=== PATIENT | female | born 1940 | race Caucasian/White ===

== ENCOUNTER 2023-06-30 09:48 | Emergency (ER) | payer MEDICARE, OTHER ==
[2023-06-30] MEDS ORDERED: Sodium Chloride 0.9% 1,000 ML IV SCH (10:15)
[2023-06-30 10:23] LABS: BASOPHILS PERCENT AUTO 0.2 % (0.0-1.0); EOSINOPHILS PERCENT AUTO 0.1 % (0.0-6.0); HEMATOCRIT 39.3 % (37.0-47.0); HEMOGLOBIN 12.9 gm/dl (12.0-16.0); IMMATURE GRAN ABSOLUTE AUTO 0.05 K/mm3 (0.00-0.05); IMMATURE GRAN PERCENT AUTO 0.5 % (0.0-0.4); LYMPHOCYTES ABSOLUTE AUTO 2.3 K/mm3 (1.0-4.8); LYMPHOCYTES PERCENT AUTO 21.7 % (24.0-44.0); MEAN CORPUSCULAR HEMOGLOBIN 30.5 pg (28.0-32.0); MEAN CORPUSCULAR HGB CONC 32.8 g/dl (32.0-36.0); MEAN CORPUSCULAR VOLUME 92.9 fl (83.0-99.0); MONOCYTES ABSOLUTE AUTO 0.8 K/mm3 (0.0-0.8); MONOCYTES PERCENT AUTO 7.2 % (0.0-8.0); NEUTROPHILS ABSOLUTE AUTO 7.4 K/mm3 (1.8-7.7); NEUTROPHILS PERCENT AUTO 70.3 % (41.0-71.0); PLATELET COUNT,PLT 168 K/mm3 (150-400); RED BLOOD CELL COUNT 4.23 M/mm3 (4.10-5.30); WHITE BLOOD CELL COUNT,WBC 10.51 K/mm3 (3.9-11.3)
[2023-06-30 10:39] LABS: INR 1.01; PROTHROMBIN TIME 10.8 SECONDS (9.7-12.0)
[2023-06-30 10:40] LABS: PTT,PARTIAL THROMBOPLSTIN TIME 28.3 SECONDS (21.7-31.4)
[2023-06-30 10:45] LABS: ALBUMIN 3.5 g/dl (3.4-5.0); BILIRUBIN TOTAL 1.5 mg/dL (0.2-1.0); BUN/CREATININE RATIO 7.5 (14-18); CALCIUM 9.1 mg/dL (8.5-10.1); CREATININE 1.2 mg/dL (0.55-1.02); EST CRCL DRUG DOSING (CG) 32.67 mL/min; PROTEIN TOTAL,TP 7.1 g/dl (6.4-8.2)
[2023-06-30] MEDS: Sodium Chloride 0.9% 10 ML Syringe FLUSH PRN ×2 (11:15→12:22)
[2023-06-30 11:28] LABS: APPEARANCE,URINE CLEAR (Clear); BILIRUBIN,URINE NEGATIVE (Negative); COLOR,URINE YELLOW (Yellow); GLUCOSE,URINE NEGATIVE (Negative); KETONES,URINE NEGATIVE (Negative); LEUKOCYTE ESTERASE,URINE NEGATIVE (Negative); NITRITE,URINE NEGATIVE (Negative); OCCULT BLOOD,URINE NEGATIVE (Negative); PROTEIN,URINE 1+ (Negative); UROBILINOGEN,URINE 0.2 (0.2-1.0)
[2023-06-30 11:36] LABS: BACTERIA,URINE NOT SEEN /hpf (FEW); EPITHELIAL CELLS,URINE NOT SEEN /hpf (0-5); HYALINE CASTS,URINE 0-5 /lpf (0-5); MUCUS,URINE FEW /hpf (FEW); RBC,URINE 0-5 /hpf (0-5); WBC,URINE 0-5 /hpf (0-5)
[2023-06-30] MEDS ORDERED: Aspirin 325 MG Tab.EC PO ONE (12:09)
[2023-06-30] MEDS ORDERED: Iopamidol 755 Mg/ML 100 ML Bottle IVPUSH ONE (12:21)
[2023-06-30] MEDS ORDERED: Sodium Chloride 0.9% 100 ML IV SCH (12:30)
[2023-06-30 14:12] VITALS: BP 160/68; PULSE 74
== END 2023-06-30 13:40 | disposition home or self-care (01) ==
LOC: JD.ED 09:48
DX: G45.9 Transient cerebral ischemic attack, unspecified (principal); I10 Essential (primary) hypertension; J44.9 Chronic obstructive pulmonary disease, unspecified; Z79.899 Other long term (current) drug therapy; Z88.8 Allergy status to other drugs, medicaments and biological substances
CPT/HCPCS: 36415; 70450; 70496; 70498; 71045; 80053; 81001; 82947; 84484; 85025; 85610; 85730; 93005; 93246; 99285; A9270; J3490; J7030; Q9967; 93010

== ENCOUNTER 2023-11-17 12:19 | Emergency (ER) | payer MEDICARE, OTHER ==
[2023-11-17 12:47] LABS: BASOPHILS PERCENT AUTO 0.2 % (0.0-1.0); EOSINOPHILS PERCENT AUTO 0.2 % (0.0-6.0); HEMATOCRIT 36.2 % (37.0-47.0); IMMATURE GRAN ABSOLUTE AUTO 0.06 K/mm3 (0.00-0.05); IMMATURE GRAN PERCENT AUTO 0.6 % (0.0-0.4); LYMPHOCYTES ABSOLUTE AUTO 3.1 K/mm3 (1.0-4.8); LYMPHOCYTES PERCENT AUTO 32.8 % (24.0-44.0); MEAN CORPUSCULAR HEMOGLOBIN 28.8 pg (28.0-32.0); MEAN CORPUSCULAR HGB CONC 31.5 g/dl (32.0-36.0); MEAN CORPUSCULAR VOLUME 91.4 fl (83.0-99.0); MONOCYTES ABSOLUTE AUTO 0.7 K/mm3 (0.0-0.8); MONOCYTES PERCENT AUTO 6.9 % (0.0-8.0); NEUTROPHILS ABSOLUTE AUTO 5.6 K/mm3 (1.8-7.7); NEUTROPHILS PERCENT AUTO 59.3 % (41.0-71.0); PLATELET COUNT,PLT 198 K/mm3 (150-400); RED BLOOD CELL COUNT 3.96 M/mm3 (4.10-5.30); WHITE BLOOD CELL COUNT,WBC 9.45 K/mm3 (3.9-11.3)
[2023-11-17 12:49] LABS: HEMOGLOBIN 11.4 gm/dl (12.0-16.0)
[2023-11-17 13:07] LABS: A/G RATIO 0.7 (1-2); ALBUMIN 2.4 g/dl (3.4-5.0); ANION GAP 11.6 (5-15); BILIRUBIN TOTAL 0.6 mg/dL (0.2-1.0); CALCIUM 8.4 mg/dL (8.5-10.1); EST CRCL DRUG DOSING (CG) 38.5 mL/min; POTASSIUM,K 3.6 mEq/L (3.5-5.1); PROTEIN TOTAL,TP 6.1 g/dl (6.4-8.2)
[2023-11-17] MEDS ORDERED: Acetaminophen 325 MG Tab PO ONE (15:54)
[2023-11-17 16:50] VITALS: BP 176/72; PULSE 78
== END 2023-11-17 16:40 | disposition home or self-care (01) ==
LOC: JD.ED 12:19
DX: S01.01XA Laceration without foreign body of scalp, initial encounter (principal); S40.012A Contusion of left shoulder, initial encounter; S20.212A Contusion of left front wall of thorax, initial encounter; I10 Essential (primary) hypertension; J44.9 Chronic obstructive pulmonary disease, unspecified; K21.9 Gastro-esophageal reflux disease without esophagitis; E78.00 Pure hypercholesterolemia, unspecified; Z86.16 Personal history of COVID-19; Z79.899 Other long term (current) drug therapy; Z88.8 Allergy status to other drugs, medicaments and biological substances; W01.198A Fall on same level from slipping, tripping and stumbling with subsequent striking against other object, initial encounter
CPT/HCPCS: 12001; 36415; 70450; 70450-26; 71101-26-LT; 71101-LT; 72125; 72125-26; 73060-26-LT; 73060-LT; 80053; 83735; 85025; 93005; 99284; A9270-GY

== ENCOUNTER 2024-10-17 21:18 | Inpatient (IN) | payer MEDICARE, OTHER ==
[2024-10-17] MEDS: Albuterol/Ipratropium 3.0-0.5 MG/3 ML Neb Soln NEB ONE (21:47)
[2024-10-17] MEDS: Sodium Chloride 0.9% 1,000 ML IV ONE (22:05)
[2024-10-17] MEDS: Sodium Chloride 0.9% 10 ML Syringe FLUSH PRN (22:06)
[2024-10-17 22:19] LABS: HEMATOCRIT 42.7 % (37.0-47.0); HEMOGLOBIN 13.4 gm/dl (12.0-16.0); MEAN CORPUSCULAR HEMOGLOBIN 29.6 pg (28.0-32.0); MEAN CORPUSCULAR HGB CONC 31.4 g/dl (32.0-36.0); MEAN CORPUSCULAR VOLUME 94.3 fl (83.0-99.0); MEAN PLATELET VOLUME 10.4 fl (9.4-12.3); PLATELET COUNT,PLT 314 K/mm3 (150-400); RED BLOOD CELL COUNT 4.53 M/mm3 (4.10-5.30); WHITE BLOOD CELL COUNT,WBC 14.72 K/mm3 (3.9-11.3)
[2024-10-17 22:26] LABS: INR 0.99; PROTHROMBIN TIME 10.5 SECONDS (9.7-12.0)
[2024-10-17 22:32] LABS: APPEARANCE,URINE CLEAR (Clear); BILIRUBIN,URINE NEGATIVE (Negative); COLOR,URINE YELLOW (Yellow); GLUCOSE,URINE NEGATIVE (Negative); KETONES,URINE NEGATIVE (Negative); LEUKOCYTE ESTERASE,URINE NEGATIVE (Negative); NITRITE,URINE NEGATIVE (Negative); OCCULT BLOOD,URINE NEGATIVE (Negative); PROTEIN,URINE 2+ (Negative); UROBILINOGEN,URINE 0.2 (0.2-1.0)
[2024-10-17 22:47] LABS: A/G RATIO 0.6 (1-2); ALBUMIN 2.6 g/dl (3.4-5.0); ANION GAP 11.3 (5-15); BILIRUBIN TOTAL 0.5 mg/dL (0.2-1.0); C-REACTIVE PROTEIN 21.43 mg/dL (<0.30); CALCIUM 9.5 mg/dL (8.5-10.1); EST CRCL DRUG DOSING (CG) 37.8 mL/min; LACTIC ACID 0.7 mmol/L (0.4-2.0); POTASSIUM,K 4.3 mEq/L (3.5-5.1); PROTEIN TOTAL,TP 7.1 g/dl (6.4-8.2)
[2024-10-17] MEDS: cefTRIAXone 1 GM in Sodium Chloride 0.9% 50 ML IV ONE (22:47)
[2024-10-17 22:50] LABS: BACTERIA,URINE FEW /hpf (FEW); HYALINE CASTS,URINE 30-40 /lpf (0-5); MUCUS,URINE FEW /hpf (FEW); RBC,URINE 0-5 /hpf (0-5); WBC,URINE 0-5 /hpf (0-5)
[2024-10-17 23:13] LABS: BAND PERCENT MAN 0 % (0-10); BASOPHILS PERCENT MAN 0 (0.1-1.2); EOSINOPHILS PERCENT MAN 0 % (0.7-5.8); LYMPHOCYTES % ATYPICAL MANUAL 0 %; LYMPHOCYTES PERCENT MAN 26 % (20-40); MONOCYTES PERCENT MAN 13 % (2-10); PLATELET COUNT ESTIMATE ADEQUATE
[2024-10-17] MEDS: Azithromycin 500 MG in Sodium Chloride 0.9% 250 ML IV ONE (23:20)
[2024-10-18 05:57] LABS: BASOPHILS PERCENT AUTO 0.3 % (0.0-1.0); EOSINOPHILS PERCENT AUTO 0.1 % (0.0-6.0); HEMATOCRIT 41.8 % (37.0-47.0); HEMOGLOBIN 12.9 gm/dl (12.0-16.0); IMMATURE GRAN ABSOLUTE AUTO 0.06 K/mm3 (0.00-0.05); IMMATURE GRAN PERCENT AUTO 0.4 % (0.0-0.4); LYMPHOCYTES ABSOLUTE AUTO 3.2 K/mm3 (1.0-4.8); LYMPHOCYTES PERCENT AUTO 22.8 % (24.0-44.0); MEAN CORPUSCULAR HEMOGLOBIN 29.7 pg (28.0-32.0); MEAN CORPUSCULAR HGB CONC 30.9 g/dl (32.0-36.0); MEAN CORPUSCULAR VOLUME 96.1 fl (83.0-99.0); MEAN PLATELET VOLUME 10.1 fl (9.4-12.3); MONOCYTES ABSOLUTE AUTO 1.9 K/mm3 (0.0-0.8); MONOCYTES PERCENT AUTO 13.5 % (0.0-8.0); NEUTROPHILS ABSOLUTE AUTO 8.9 K/mm3 (1.8-7.7); NEUTROPHILS PERCENT AUTO 62.9 % (41.0-71.0); PLATELET COUNT,PLT 280 K/mm3 (150-400); RED BLOOD CELL COUNT 4.35 M/mm3 (4.10-5.30); WHITE BLOOD CELL COUNT,WBC 14.17 K/mm3 (3.9-11.3)
[2024-10-18 06:24] LABS: A/G RATIO 0.6 (1-2); ALBUMIN 2.3 g/dl (3.4-5.0); ANION GAP 10.1 (5-15); BILIRUBIN TOTAL 0.4 mg/dL (0.2-1.0); CALCIUM 8.9 mg/dL (8.5-10.1); CREATININE 0.8 mg/dL (0.55-1.02); EST CRCL DRUG DOSING (CG) 47.25 mL/min; POTASSIUM,K 4.1 mEq/L (3.5-5.1); PROTEIN TOTAL,TP 6.4 g/dl (6.4-8.2); SLIDE REVIEW ABNORMAL SMEAR
[2024-10-18] MEDS ORDERED: Cefepime 2 GM in Sodium Chloride 0.9% 50 ML IV SCH (08:15)
[2024-10-18] MEDS: Sertraline 25 MG Tab PO SCH (08:55)
[2024-10-18] MEDS: Furosemide 40 MG Tab PO SCH (08:55)
[2024-10-18] MEDS: Clopidogrel 75 MG Tab PO SCH (08:55)
[2024-10-18] MEDS: Cefepime 2 GM Vial IVPUSH SCH (08:55)
[2024-10-18] MEDS: guaiFENesin 600 MG Tab.ER PO SCH (09:33)
[2024-10-18] MEDS: Enoxaparin 40 MG/0.4 ML Syringe SUBCUT SCH (09:34)
[2024-10-18] MEDS: Sodium Chloride 0.9% 1,000 ML IV SCH (10:02)
[2024-10-18] MEDS: Ondansetron 4 MG/2 ML SDV IVPUSH PRN (17:53)
[2024-10-18] MEDS: Albuterol/Ipratropium 3.0-0.5 MG/3 ML Neb Soln NEB PRN (20:46)
[2024-10-19 06:22] LABS: BASOPHILS PERCENT AUTO 0.3 % (0.0-1.0); EOSINOPHILS PERCENT AUTO 0.1 % (0.0-6.0); HEMATOCRIT 44.5 % (37.0-47.0); HEMOGLOBIN 13.5 gm/dl (12.0-16.0); IMMATURE GRAN ABSOLUTE AUTO 0.16 K/mm3 (0.00-0.05); IMMATURE GRAN PERCENT AUTO 1.2 % (0.0-0.4); LYMPHOCYTES ABSOLUTE AUTO 2.1 K/mm3 (1.0-4.8); LYMPHOCYTES PERCENT AUTO 15.5 % (24.0-44.0); MEAN CORPUSCULAR HGB CONC 30.3 g/dl (32.0-36.0); MEAN CORPUSCULAR VOLUME 95.7 fl (83.0-99.0); MEAN PLATELET VOLUME 10.1 fl (9.4-12.3); MONOCYTES ABSOLUTE AUTO 1.4 K/mm3 (0.0-0.8); MONOCYTES PERCENT AUTO 10.5 % (0.0-8.0); NEUTROPHILS ABSOLUTE AUTO 9.9 K/mm3 (1.8-7.7); NEUTROPHILS PERCENT AUTO 72.4 % (41.0-71.0); PLATELET COUNT,PLT 300 K/mm3 (150-400); RED BLOOD CELL COUNT 4.65 M/mm3 (4.10-5.30); WHITE BLOOD CELL COUNT,WBC 13.65 K/mm3 (3.9-11.3)
[2024-10-19 06:27] LABS: A/G RATIO 0.5 (1-2); ALBUMIN 2.3 g/dl (3.4-5.0); BILIRUBIN TOTAL 0.3 mg/dL (0.2-1.0); BUN/CREATININE RATIO 18.9 (14-18); C-REACTIVE PROTEIN 20.29 mg/dL (<0.30); CALCIUM 8.4 mg/dL (8.5-10.1); CREATININE 0.9 mg/dL (0.55-1.02); PROTEIN TOTAL,TP 6.8 g/dl (6.4-8.2)
[2024-10-19 07:25] LABS: BASE EXCESS ARTERIAL 3.2 (-2-2.0); BICARBONATE,ARTERIAL 31.7 meq/L (22.0-26.0)
[2024-10-19] MEDS: Albuterol/Ipratropium 3.0-0.5 MG/3 ML Neb Soln NEB SCH (08:39)
[2024-10-19] MEDS: Polyethylene Glycol 3350 Powder 17 GM Packet PO SCH (08:59)
[2024-10-19] MEDS: Metoprolol Succinate 50 MG Tab.ER PO SCH (09:00)
[2024-10-19] MEDS: Furosemide 20 MG/2 ML VIAL IVPUSH SCH (09:00)
[2024-10-19] MEDS ORDERED: Albuterol 0.083% 2.5 MG/3 ML Neb Soln NEB PRN (15:41)
[2024-10-20 04:47] LABS: BASOPHILS PERCENT AUTO 0.3 % (0.0-1.0); EOSINOPHILS PERCENT AUTO 0.2 % (0.0-6.0); HEMOGLOBIN 13.2 gm/dl (12.0-16.0); IMMATURE GRAN ABSOLUTE AUTO 0.13 K/mm3 (0.00-0.05); IMMATURE GRAN PERCENT AUTO 1.1 % (0.0-0.4); LYMPHOCYTES ABSOLUTE AUTO 2.3 K/mm3 (1.0-4.8); LYMPHOCYTES PERCENT AUTO 19.1 % (24.0-44.0); MEAN CORPUSCULAR HEMOGLOBIN 29.7 pg (28.0-32.0); MEAN CORPUSCULAR HGB CONC 29.3 g/dl (32.0-36.0); MEAN CORPUSCULAR VOLUME 101.1 fl (83.0-99.0); MEAN PLATELET VOLUME 10.2 fl (9.4-12.3); MONOCYTES PERCENT AUTO 7.8 % (0.0-8.0); NEUTROPHILS ABSOLUTE AUTO 8.7 K/mm3 (1.8-7.7); NEUTROPHILS PERCENT AUTO 71.5 % (41.0-71.0); PLATELET COUNT,PLT 283 K/mm3 (150-400); RED BLOOD CELL COUNT 4.45 M/mm3 (4.10-5.30); WHITE BLOOD CELL COUNT,WBC 12.12 K/mm3 (3.9-11.3)
[2024-10-20 05:12] LABS: ANION GAP 8.9 (5-15); BUN/CREATININE RATIO 22.2 (14-18); C-REACTIVE PROTEIN 20.91 mg/dL (<0.30); CREATININE 0.9 mg/dL (0.55-1.02); MAGNESIUM 2.1 mg/dL (1.8-2.4); POTASSIUM,K 3.9 mEq/L (3.5-5.1)
[2024-10-20 07:43] LABS: BASE EXCESS ARTERIAL 4.1 (-2-2.0); O2 SATURATION ARTERIAL 93.2 % (96.0-97.0)
[2024-10-21] MEDS: Acetaminophen 325 MG Tab PO PRN (03:37)
[2024-10-21 04:39] LABS: BASOPHILS PERCENT AUTO 0.4 % (0.0-1.0); EOSINOPHILS PERCENT AUTO 0.3 % (0.0-6.0); HEMATOCRIT 42.2 % (37.0-47.0); HEMOGLOBIN 12.9 gm/dl (12.0-16.0); IMMATURE GRAN ABSOLUTE AUTO 0.14 K/mm3 (0.00-0.05); IMMATURE GRAN PERCENT AUTO 1.2 % (0.0-0.4); LYMPHOCYTES ABSOLUTE AUTO 2.5 K/mm3 (1.0-4.8); LYMPHOCYTES PERCENT AUTO 22.2 % (24.0-44.0); MEAN CORPUSCULAR HEMOGLOBIN 29.4 pg (28.0-32.0); MEAN CORPUSCULAR HGB CONC 30.6 g/dl (32.0-36.0); MEAN CORPUSCULAR VOLUME 96.1 fl (83.0-99.0); MEAN PLATELET VOLUME 10.2 fl (9.4-12.3); MONOCYTES ABSOLUTE AUTO 0.9 K/mm3 (0.0-0.8); MONOCYTES PERCENT AUTO 7.5 % (0.0-8.0); NEUTROPHILS ABSOLUTE AUTO 7.7 K/mm3 (1.8-7.7); NEUTROPHILS PERCENT AUTO 68.4 % (41.0-71.0); PLATELET COUNT,PLT 279 K/mm3 (150-400); RED BLOOD CELL COUNT 4.39 M/mm3 (4.10-5.30); WHITE BLOOD CELL COUNT,WBC 11.28 K/mm3 (3.9-11.3)
[2024-10-21 05:17] LABS: BUN/CREATININE RATIO 22.5 (14-18); C-REACTIVE PROTEIN 13.44 mg/dL (<0.30); CALCIUM 8.1 mg/dL (8.5-10.1); CREATININE 0.8 mg/dL (0.55-1.02); EST CRCL DRUG DOSING (CG) 47.25 mL/min; MAGNESIUM 1.9 mg/dL (1.8-2.4)
[2024-10-21] MEDS: Potassium Chloride 20 MEQ Tab.ER PO SCH (09:15)
[2024-10-21 13:32] VITALS: BP 149/84; PULSE 80
== END 2024-10-21 12:36 | DRG 871 ==
LOC: JD.ED 21:18 → JD.MS 23:09
PROVIDERS: ADMIT Family Medicine; ATTEND Internal Medicine
PROC: 4A133R1 Monitoring of Arterial Saturation, Peripheral, Percutaneous Approach (ICD-10-PCS; principal; 2024-10-17)
PROC: 5A09357 Assistance with Respiratory Ventilation, Less than 24 Consecutive Hours, Continuous Positive Airway Pressure (ICD-10-PCS; 2024-10-17)
PROC: 3E03329 Introduction of Other Anti-infective into Peripheral Vein, Percutaneous Approach (ICD-10-PCS; 2024-10-17)
DX: A41.9 Sepsis, unspecified organism (principal); R79.89 Other specified abnormal findings of blood chemistry; J18.9 Pneumonia, unspecified organism; J44.9 Chronic obstructive pulmonary disease, unspecified; J96.21 Acute and chronic respiratory failure with hypoxia; J96.22 Acute and chronic respiratory failure with hypercapnia; J44.1 Chronic obstructive pulmonary disease with (acute) exacerbation; J44.0 Chronic obstructive pulmonary disease with (acute) lower respiratory infection; Z79.02 Long term (current) use of antithrombotics/antiplatelets; I50.32 Chronic diastolic (congestive) heart failure; Z88.1 Allergy status to other antibiotic agents; Z66 Do not resuscitate; E78.00 Pure hypercholesterolemia, unspecified; K21.9 Gastro-esophageal reflux disease without esophagitis; M19.90 Unspecified osteoarthritis, unspecified site; E88.09 Other disorders of plasma-protein metabolism, not elsewhere classified; I11.0 Hypertensive heart disease with heart failure; H91.90 Unspecified hearing loss, unspecified ear; H54.7 Unspecified visual loss; G43.909 Migraine, unspecified, not intractable, without status migrainosus; Z96.659 Presence of unspecified artificial knee joint; Z96.649 Presence of unspecified artificial hip joint; L89.152 Pressure ulcer of sacral region, stage 2; Z99.81 Dependence on supplemental oxygen; Z95.3 Presence of xenogenic heart valve; Z88.8 Allergy status to other drugs, medicaments and biological substances; Z79.51 Long term (current) use of inhaled steroids; Z79.899 Other long term (current) drug therapy; Z86.16 Personal history of COVID-19
CPT/HCPCS: 36415; 71045; 80053; 81001; 83605; 83735; 84145; 84484; 85007; 85027; 85610; 86140; 87040 ×2; 87428; 87899; 93005; 94640; 96361; 96365; 99285; J0696; J3490; J7030; 36600; 80048; 82803; 85025; 86738; 87070; 87205; 87641; 93010; 94660; 94667; 94668; 94761; 94762; 97161-GP; 97530-GP; A9270-GY; C1758; J0456; J0692; J1650; J1940; J2405; J7050; J7620-GY

== ENCOUNTER 2025-04-03 10:23 | Emergency (ER) | payer MEDICARE, OTHER ==
[2025-04-03] MEDS: HYDROmorphone 0.5 MG/0.5 ML Syringe IVPUSH ONE (11:09)
[2025-04-03] MEDS: Sodium Chloride 0.9% 1,000 ML IV SCH ×2 (11:09→15:47)
[2025-04-03] MEDS: Sodium Chloride 0.9% 10 ML Syringe FLUSH PRN (11:10)
[2025-04-03 11:14] LABS: BASOPHILS ABSOLUTE AUTO 0.1 K/mm3 (0.0-0.2); BASOPHILS PERCENT AUTO 0.2 % (0.0-1.0); EOSINOPHILS ABSOLUTE AUTO 0.3 K/mm3 (0.0-0.4); EOSINOPHILS PERCENT AUTO 1.5 % (0.0-6.0); HEMATOCRIT 45.9 % (37.0-47.0); IMMATURE GRAN ABSOLUTE AUTO 0.27 K/mm3 (0.00-0.05); IMMATURE GRAN PERCENT AUTO 1.2 % (0.0-0.4); LYMPHOCYTES ABSOLUTE AUTO 3.3 K/mm3 (1.0-4.8); LYMPHOCYTES PERCENT AUTO 14.6 % (24.0-44.0); MEAN CORPUSCULAR HEMOGLOBIN 29.5 pg (28.0-32.0); MEAN CORPUSCULAR HGB CONC 32.5 g/dl (32.0-36.0); MEAN PLATELET VOLUME 12.2 fl (9.4-12.3); MONOCYTES PERCENT AUTO 8.9 % (0.0-8.0); NEUTROPHILS ABSOLUTE AUTO 16.7 K/mm3 (1.8-7.7); NEUTROPHILS PERCENT AUTO 73.6 % (41.0-71.0); RED BLOOD CELL COUNT 5.05 M/mm3 (4.10-5.30); WHITE BLOOD CELL COUNT,WBC 22.64 K/mm3 (3.9-11.3)
[2025-04-03 11:16] LABS: HEMOGLOBIN 14.9 gm/dl (12.0-16.0); MEAN CORPUSCULAR VOLUME 90.9 fl (83.0-99.0)
[2025-04-03 11:17] LABS: PLATELET COUNT,PLT 148 K/mm3 (150-400)
[2025-04-03 11:39] LABS: SLIDE REVIEW ABNORMAL SMEAR
[2025-04-03 11:43] LABS: A/G RATIO 0.5 (1-2); ALANINE AMINOTRANSFERASE,ALT 105 U/L (14-59); ANION GAP 10.4 (5-15); BILIRUBIN TOTAL 9.7 mg/dL (0.2-1.0); BLOOD UREA NITROGEN,BUN 16 mg/dL (7-18); BUN/CREATININE RATIO 17.8 (14-18); CARBON DIOXIDE,CO2 29 mEq/L (21-32); CHLORIDE,CL 94 mEq/L (98-107); ESTIMATED GFR 62 mL/min (>60); GLUCOSE RANDOM 105 mg/dL (70-99); LIPASE 24 U/L (16-77)
[2025-04-03 11:46] LABS: ALKALINE PHOSPHATASE 1028 U/L (46-116)
[2025-04-03 11:47] LABS: CALCIUM 9.6 mg/dL (8.5-10.1); CREATININE 0.9 mg/dL (0.55-1.02); POTASSIUM,K 4.4 mEq/L (3.5-5.1); PROTEIN TOTAL,TP 5.9 g/dl (6.4-8.2); SODIUM,NA 129 mEq/L (136-145)
[2025-04-03 11:48] LABS: ASPARTATE AMNIOTRANSFERASE,AST 153 U/L (15-37)
[2025-04-03] MEDS ORDERED: Sodium Chloride 0.9% 10 ML Syringe FLUSH PRN (12:23)
[2025-04-03 12:38] LABS: APPEARANCE,URINE CLEAR (Clear); BILIRUBIN,URINE NEGATIVE (Negative); COLOR,URINE LIGHT YELLOW (Yellow); GLUCOSE,URINE NEGATIVE (Negative); KETONES,URINE NEGATIVE (Negative); LEUKOCYTE ESTERASE,URINE NEGATIVE (Negative); NITRITE,URINE NEGATIVE (Negative); OCCULT BLOOD,URINE NEGATIVE (Negative); PH,URINE 8.5 (5.0-8.0); PROTEIN,URINE NEGATIVE (Negative); UROBILINOGEN,URINE 0.2 (0.2-1.0)
[2025-04-03 12:41] LABS: INR 1.27; PROTHROMBIN TIME 13.3 SECONDS (9.7-12.0)
[2025-04-03 13:06] LABS: RBC,URINE 0-5 /hpf (0-5); WBC,URINE NOT SEEN /hpf (0-5)
[2025-04-03 13:07] LABS: BACTERIA,URINE FEW /hpf (FEW); EPITHELIAL CELLS,URINE 0-5 /hpf (0-5); MUCUS,URINE NOT SEEN /hpf (FEW)
[2025-04-03] MEDS: cefTRIAXone 2 GM Vial IVPUSH ONE ×2 (13:25→13:52)
[2025-04-03] MEDS: Iopamidol 612 MG/ML 100 ML Bottle IVPUSH ONE (13:25)
[2025-04-03] MEDS: Sodium Chloride 0.9% 10 ML Syringe FLUSH ONE (13:25)
[2025-04-03] MEDS ORDERED: cefTRIAXone 2 GM Vial IVPUSH SCH (13:30)
[2025-04-03] MEDS ORDERED: Heparin Sodium/D5W 250 ML IV SCH (16:00)
[2025-04-03 16:46] VITALS: BP 102/59; PULSE 65
== END 2025-04-03 16:25 ==
LOC: JD.ED 10:23
DX: I81 Portal vein thrombosis (principal); R17 Unspecified jaundice; E80.6 Other disorders of bilirubin metabolism; D72.829 Elevated white blood cell count, unspecified; R16.0 Hepatomegaly, not elsewhere classified; R74.8 Abnormal levels of other serum enzymes; I11.0 Hypertensive heart disease with heart failure; I50.9 Heart failure, unspecified; J44.89 Other specified chronic obstructive pulmonary disease; Z86.16 Personal history of COVID-19; Z95.2 Presence of prosthetic heart valve; Z88.1 Allergy status to other antibiotic agents; Z88.8 Allergy status to other drugs, medicaments and biological substances; Z79.51 Long term (current) use of inhaled steroids; Z79.890 Hormone replacement therapy; Z79.899 Other long term (current) drug therapy
CPT/HCPCS: 36415; 74177; 76705; 80053; 81001; 82140; 83605; 83690; 85025; 85610; 85730; 86140; 87040; 96361; 96374; 96375; 99285; J0696; J7030; Q9967